=== PATIENT | male | born 1990 | race African-American/Black ===

== ENCOUNTER 2019-06-18 20:24 | Inpatient (IN) | payer SELFPAY ==
[~2019-06-18] VITALS: Ht 195.6 cm; Wt 71.3 kg
[2019-06-19 00:48] LABS: Urine Bacteria FEW /hpf (None Seen); Urine Blood 3+ /uL (Negative); Urine Mucus FEW (None Seen); Urine Specific Gravity 1.012 (1.001-1.035); Urine WBC 5 /hpf (0 - 3)
[2019-06-19 01:06] LABS: Alcohol, Urine < 3.0 mg/dL (0-5); Barbiturate Scree,Urine NEGATIVE (NEGATIVE); Benzodiazephine Screen, Urine NEGATIVE (NEGATIVE); Cannabinoid Screen, Urine NEGATIVE (NEGATIVE); Cocaine Screen, Urine NEGATIVE (NEGATIVE); Opiate Scree,Urine NEGATIVE (NEGATIVE); Phencyclidine Screen, Urine NEGATIVE (NEGATIVE)
[2019-06-19 01:08] LABS: Amphetamine Screen, Urine NEGATIVE (NEGATIVE)
[2019-06-19 02:44] LABS: Basophils # (auto) 0 uL; Basophils % (auto) 0.6 % (0.0-2.0); Eosinophils # (auto) 0.1 uL; Eosinophils % (auto) 1.1 % (0.0-7.0); Hematocrit 40.4 % (41.0-53.0); Hemoglobin 14.3 g/dL (13.5-17.5); Lymphocytes # (auto) 2.7 uL; Lymphocytes % (auto) 36.1 % (10.0-50.0); Mean Corpuscular Hgb Conc. 35.3 g/dL (32.0-36.0); Mean Corpuscular Volume 87.8 fL (80.0-100.0); Monocytes # (auto) 0.5 uL; Monocytes % (auto) 7.3 % (0.0-12.0); Neutrophils % (auto) 54.9 % (37.0-80.0); Nucleated Red Blood Cells % 0.1 %; Platelet Count (auto) 189 10^3/uL (140-450); Red Cell Distribution Width 12.4 % (11.8-14.3); White Blood Cell 7.4 10^3/uL (4.4-10.8)
[2019-06-19 02:57] LABS: Albumin 3.9 g/dL (3.4-5.0); Amylase 69 U/L (25-115); Anion Gap 5 (5-15); Blood Urea Nitrogen 13 mg/dL (7-18); Carbon Dioxide 27 mmol/L (21-32); Chloride 108 mmol/L (98-107); Glucose 85 mg/dL (74-106); Lipase 132 U/L (73-393); Potassium 4.1 mmol/L (3.5-5.1); Sodium 140 mmol/L (136-145)
[2019-06-19 02:59] LABS: Alanine Aminotransferase 32 U/L (16-61); Aspartate Aminotransferase 18 U/L (15-37); BUN/Creatinine Ratio 12.5; Blood Alcohol < 3.0 mg/dL (0-5); GFR African American 109 mL/min; GFR Non-African American 90 mL/min
[2019-06-19 03:02] LABS: Alkaline Phosphatase 67 U/L (45-117); Bilirubin, Total 0.7 mg/dL (0.2-1.0)
[2019-06-19] MEDS ORDERED: KETOROLAC TROMETH 30 MG/ML 1ML VIAL IV PRN ×2 (04:45→05:00)
[2019-06-19] MEDS ORDERED: HYDROcodone-ACET 5/325MG TAB PO PRN (04:45)
[2019-06-19] MEDS ORDERED: ACETAMINOPHEN 500 MG TAB PO PRN (04:45)
[2019-06-19] MEDS: SODIUM CHLORIDE 0.9% 1,000 ML IV SCH ×3 (05:07→17:51)
[2019-06-19] MEDS: FAMOTIDINE 20 MG TAB PO SCH (10:21)
[2019-06-19 10:38] VITALS: BP 122/71
[2019-06-19] MEDS ORDERED: LEVOFLOXACIN 500MG 100 ML IV ONE (12:00)
[2019-06-19 13:00] VITALS: BP 123/70
--- NOTE | 2019-06-19 13:15 | NUR ---
Patient admitted to the unit from the ED. Patient has no complaints of pain at this time. Will continue to monitor q1hr.
--- NOTE | 2019-06-19 16:30 | NUR ---
Urine collected, sent to lab.
[2019-06-19 17:33] VITALS: BP 106/67
[2019-06-19 21:57] VITALS: BP 107/50
[2019-06-20] MEDS: SODIUM CHLORIDE 0.9% 1,000 ML IV SCH ×2 (01:45→09:24)
[2019-06-20 05:00] VITALS: BP 112/65
--- NOTE | 2019-06-20 07:30 | NUR ---
OPENING NOTE The patient is received alert and oriented times four with no SOB or s/s of distress at this time. The patient is resting in bed in the lowest position with call light within reach, will continue to monitor and POC.
[2019-06-20 09:00] VITALS: BP 108/66
[2019-06-20] MEDS: FAMOTIDINE 20 MG TAB PO SCH (09:25)
[2019-06-20] MEDS ORDERED: LEVOFLOXACIN 500MG 100 ML IV SCH (10:00)
--- NOTE | 2019-06-20 11:45 | NUR ---
HOSPITALIST BEDSIDE Dr. Vergara is bedside and updates the patient on the POC. The patient is cleared for discharge at this time.
[2019-06-20 13:00] VITALS: BP 108/58
[2019-06-20 14:41] VITALS: BP 108/66
--- NOTE | 2019-06-20 16:23 | NUR ---
Received referral to see pt for followup. Pt stated there were no issues to discuss. He stated if he need some social work assistance he would get ahold of nurse.
--- NOTE | 2019-06-20 17:00 | NUR ---
PATIENT DISCHARGED Discharge instructions given as ordered. Encourage to follow up with PMD as instructed. All questions and concerns addressed. Patient verbalized understanding. IV removed with catheter intact, pressure dressing applied. Patient taken lounge area, accompanied by staff. No distress noted at time of departure.
== END 2019-06-20 16:49 | disposition home or self-care (01) | DRG 690 ==
LOC: ER 20:24 → OVERFLOW 20:25 → WEST WING 06-19 10:01
PROVIDERS: ADMIT Nurse Practitioner Family; ATTEND Family Medicine
DX: N13.6 Pyonephrosis (principal); N20.2 Calculus of kidney with calculus of ureter; Z88.0 Allergy status to penicillin
CPT/HCPCS: 36415; 74176; 80053; 80307; 80320; 81001; 82150; 83690; 85025; 87086; G0378; J1956